=== PATIENT | female | born 1995 | race Caucasian/White ===

== ENCOUNTER 2017-11-16 10:19 | Emergency (ER) | payer BC ==
[2017-11-16 11:01] LABS: ADD MAN DIFF? NO
[2017-11-16] MEDS: ONDANSETRON 4 MG INJ IV (11:10)
[2017-11-16 11:11] LABS: BASOPHIL # 0.1 10^3/ul (0.0-0.1); BASOPHILS % 0.6 % (0.0-2.0); EOSINOPHILS # 0.2 10^3/ul (0.0-0.5); EOSINOPHILS % 2.2 % (0.0-7.0); HEMATOCRIT 38.3 % (37.0-47.0); HEMOGLOBIN 12.4 g/dl (12.0-16.0); LYMPHOCYTES # 2.9 10^3/ul (0.8-2.9); LYMPHOCYTES % 32.1 % (18.0-55.0); MEAN CORPUSCULAR HEMOGLOBIN 27.4 pg (29.0-33.0); MEAN CORPUSCULAR HGB CONC 32.4 g/dl (32.0-37.0); MEAN CORPUSCULAR VOLUME 84.7 fl (72.0-104.0); MEAN PLATELET VOLUME 9.1 fl (7.4-10.4); MONOCYTE # 0.6 10^3/ul (0.3-0.9); MONOCYTES % 6.4 % (0.0-13.0); NEUTROPHIL # 5.2 10^3/ul (1.6-7.5); NEUTROPHILS % 57.9 % (30.0-74.0); PLATELET COUNT 412 10^3/UL (140-415); RED BLOOD COUNT 4.52 10^6/ul (4.20-5.40); RED CELL DISTRIBUTION WIDTH 13.5 % (11.5-14.5)
[2017-11-16] MEDS: HYDROmorphONE 1 MG/ML SYG IV (11:11)
[2017-11-16 11:34] LABS: AMYLASE 65 U/L (11-123); ANION GAP 17 (8-16); BLOOD UREA NITROGEN 10 mg/dl (7-20); CALCIUM 9.4 mg/dl (8.4-10.2); CARBON DIOXIDE 22 mmol/L (21-31); CHLORIDE 107 mmol/L (97-110); CREATININE 0.59 mg/dl (0.44-1.00); GLUCOSE 148 mg/dl (70-220); SODIUM 142 mmol/L (135-144)
[2017-11-16] MEDS: IOHEXOL 300MG/ML 150 ML BTL (12:01)
[2017-11-16] MEDS: SOD CHLORIDE 0.9% 100 ML (12:02)
[2017-11-16] MEDS: CEFTRIAXONE 1 GM/50 ML (PMX) 50 ML IVPB (12:33)
[2017-11-16] MEDS: NALOXONE (0.4 MG/ML) INJ IV ×2 (13:14→14:14)
[2017-11-16] MEDS: METHYLPREDNISOLONE 125 MG INJ IV (15:34)
[2017-11-16] MEDS: DIPHENHYDRAMINE 50 MG INJ IV (15:34)
[2017-11-16] MEDS: EPINEPHrine 1 MG INJ SC (15:35)
[2017-11-16] MEDS: FAMOTIDINE 20 MG INJ IV (15:40)
== END 2017-11-16 16:26 | disposition home or self-care (01) ==
LOC: E/R 10:19
DX: R22.0 Localized swelling, mass and lump, head (principal); R40.2142 Coma scale, eyes open, spontaneous, at arrival to emergency department; R40.2252 Coma scale, best verbal response, oriented, at arrival to emergency department; R40.2362 Coma scale, best motor response, obeys commands, at arrival to emergency department
CPT/HCPCS: 36415; 70450; 70491; 80048; 81025; 82150; 85025; 96372; 96374; 96375; 96376; 99285-25

== ENCOUNTER 2018-05-30 12:27 | Emergency (ER) | payer BC ==
[2018-05-30] MEDS: ACETAMINOPHEN 325 MG TAB PO (13:30)
[2018-05-30] MEDS: IBUPROFEN 600 MG TAB PO (13:30)
== END 2018-05-30 14:16 | disposition home or self-care (01) ==
LOC: FTE 12:27
DX: N93.8 Other specified abnormal uterine and vaginal bleeding (principal)
CPT/HCPCS: 81025; 99283